=== PATIENT | female | born 1960 | race Caucasian/White ===

== ENCOUNTER 2017-08-18 02:11 | Inpatient (IN) | payer OTHER ==
[~2017-08-18] VITALS: Ht 172.7 cm; Wt 132.1 kg
[2017-08-18 02:40] LABS: HEMATOCRIT 39.9 % (36.0-46.0); HEMOGLOBIN 13.6 G/DL (11.9-15.5); MCH 27.1 PG (29.0-34.0); MCHC 34.1 G/DL (30.0-36.0); MCV 79.6 FL (83-99); PLATELET COUNT 193 K/uL (156-360); RBC DIS.WIDTH-CV 13.5 % (11.8-14.6); RBC DIS.WIDTH-SD 38.5 % (39-53); RED BLOOD COUNT 5.01 M/uL (3.80-5.20); WHITE BLOOD COUNT 4.5 K/uL (4.1-10.2)
[2017-08-18 02:47] LABS: CHLORIDE 100 mEq/L (99-109); POTASSIUM 3.2 mEq/L (3.7-5.4); SODIUM 137 mEq/L (136-147)
[2017-08-18 02:49] LABS: GLUCOSE 176 mg/dL (70-99)
[2017-08-18 02:53] LABS: CREATININE 0.9 mg/dL (0.6-1.3); GFR ESTIMATE (CALCULATED) > 59 mL/min/; UREA NITROGEN (BUN) 19 mg/dL (9-23)
[2017-08-18 02:59] LABS: TROP-I INTERPRETATION NEGATIVE; TROPONIN-I < 0.01 ng/mL (0.0-0.30)
[2017-08-18 06:06] VITALS: BP 135/61
[2017-08-18 06:56] VITALS: BP 135/61
[2017-08-18] MEDS ORDERED: SIMVASTATIN20 MG PO (09:34)
[2017-08-18] MEDS ORDERED: POTASSIUM CHLO10 ME4 PO ×2 (09:34→15:46)
[2017-08-18] MEDS ORDERED: HYDROCHLOROTHIA25 MG PO (09:34)
[2017-08-18] MEDS ORDERED: NABUMETONE750 MG PO (09:35)
[2017-08-18] MEDS ORDERED: COZAAR100 MG PO (09:35)
[2017-08-18] MEDS ORDERED: METFORMIN HCL500 M1 PO (09:35)
[2017-08-18] MEDS ORDERED: POTASSIUM-9999 MG PO (09:35)
[2017-08-18 11:30] VITALS: BP 128/72
== END 2017-08-18 16:55 | disposition home or self-care (01) | DRG 194 ==
LOC: EME → EDBD 02:11 → EDOF 04:15 → ENRESERV 04:30 → 3EAST 05:43
PROVIDERS: Emergency Medicine; Family Medicine Sports Medicine
DX: J10.1 Influenza due to other identified influenza virus with other respiratory manifestations (principal); J98.11 Atelectasis; E87.6 Hypokalemia; R09.02 Hypoxemia; R07.89 Other chest pain; F41.1 Generalized anxiety disorder; I10 Essential (primary) hypertension; E11.9 Type 2 diabetes mellitus without complications; E66.9 Obesity, unspecified; Z68.41 Body mass index [BMI] 40.0-44.9, adult; K21.9 Gastro-esophageal reflux disease without esophagitis; E78.5 Hyperlipidemia, unspecified; M19.90 Unspecified osteoarthritis, unspecified site
CPT/HCPCS: 71046; 80048; 82948; 83880; 84484; 85027; 87502; 93005; 94640; 94799; 99281; 99285; J0696; J1650; J1885; J1956; J7030